=== PATIENT | female | born 1975 | race African-American/Black ===

== ENCOUNTER → 2016-08-31 | Outpatient (CLI) | payer OTHER ==
[~2016-08-31] MED LIST: BENTYL20 M1 PO; CLEOCIN HCL300 M1 PO; DIFLUCAN PO; FLEXERIL10 MG; FLEXERIL10 MG PO; NAPROSYN-EC500 MG PO; NORCO 7.5-3251 EACH PO; NORCO1 TAB 10/3 PO; PHENERGAN25 MG PO; ULTRAM; ULTRAM PO
--- NOTE | ~2016-08-31 | MR165 ---
[facility]. [facility] A Service of [facility] RADIOLOGY TEXT RESULTS PATIENT: APOLINAR HALL LOCATION: [facility] : 75 UNIT #: [id number] AGE: [address]: Jerrell Hou MD SEX: F ORDER DR: [id number] [address] [address] [id number] O MR#: [id number] #: [id number] NAME: APOLINAR HALL : 1975 SEX: F STUDY DATE/TIME: 08/31/2016 11:18 UNIT: [facility] ROOM: STUDY DESCRIPTION: MR Shoulder Wo Contrast Rt Attending Physician: Jerrell Hou M.D. Referring Physician: Jerrell Hou M.D. Ordering Physician: Jerrell Hou M.D. [facility] This report is preliminary unless electronic signature is present. EXAM MRI of the right shoulder HISTORY 40-year-old female complains of shoulder pain bilaterally, right greater than left. Right shoulder pain demonstrates limited range of motion and decreased strength. Clinical concern for AC joint arthritis or tendinitis. COMPARISON Right shoulder films, 06/22/2016 FINDINGS Multiplanar multiecho imaging was performed of the right shoulder utilizing a high field magnet and dedicated protocol. Examination demonstrates marrow edema within the distal third of the clavicle that most likely reflects some marrow edema related to underlying AC joint arthropathy. No findings to suggest underlying infection or neoplasm. Marrow signal within the acromion within normal limits. Marrow signal proximal humerus and glenoid appears normal. Joint fluid within normal limits. Rotator cuff appears intact without tendinopathy or tear. Minimal subacromial-subdeltoid bursal inflammation. No muscle atrophy or edema. Superior labrum, biceps anchor and long tendon of the biceps appears intact. Anterior and posterior labrum unremarkable. Articular cartilage appears normal. The deltoid and extraarticular soft tissues are unremarkable. There is minimal thickening and increased signal of the infraspinatus tendon insertion with a small amount of reactive edema within the greater tuberosity. This most likely reflects very mild tendinopathy. IMPRESSION [facility] A Service of [facility] RADIOLOGY TEXT RESULTS PATIENT: APOLINAR HALL LOCATION: [facility] : 75 UNIT #: [id number] AGE: [address]: Jerrell Hou MD SEX: F ORDER DR: 1. Mild insertional infraspinatus tendinopathy with a trace amount of subacromial-subdeltoid bursal inflammation. 2. Mild AC joint arthropathy with marrow edema in the distal clavicle and a small amount of pericapsular edema. Findings compatible with an active inflammatory component. No osteolysis or AC joint separation. Dictated by... Jayme Thompson M.D. THIS IS AN ELECTRONICALLY VERIFIED REPORT Jayme Thompson M.D. at 09/01/2016 5:03 PM Priti TD: 09/01/2016 14:09 JOB #: [id number] [facility] REPORT Page 1 of 1
== END | disposition home or self-care (01) ==
LOC: SMRI 10:46
DX: M19.011 Primary osteoarthritis, right shoulder (principal); M67.911 Unspecified disorder of synovium and tendon, right shoulder; M75.21 Bicipital tendinitis, right shoulder; M75.81 Other shoulder lesions, right shoulder; M25.461 Effusion, right knee
CPT/HCPCS: 73221

== ENCOUNTER 2016-10-11 23:16 | Emergency (ER) | payer OTHER ==
[~2016-10-11] VITALS: Ht 165.1 cm; Wt 95.2 kg
[~2016-10-11 23:16] MED LIST changes: -FLEXERIL10 MG; -ULTRAM
[2016-10-11] MEDS ORDERED: ULTRAM (23:30)
[2016-10-11] MEDS ORDERED: FLEXERIL10 MG (23:30)
[2016-10-12 00:25] LABS: BASOPHIL# 0.1 X10e3 (0-0.3); BASOPHIL% 0.7 % (0-2.5); EOSINOPHIL# 0.1 X10e3 (0-0.7); EOSINOPHIL% 0.9 % (0.0-7.0); HEMATOCRIT 34.4 % (35.0-45.0); HEMOGLOBIN 11.7 gm/dL (12.0-16.0); LYMPHOCYTE# 1.8 X10e3 (1.0-3.5); LYMPHOCYTE% 19.6 % (17.0-45.0); MEAN CELL VOLUME 96.1 FL (83-96); MEAN CORPUSCULAR HEMOGLOBIN 32.7 PG (28-34); MEAN PLATELET VOLUME 7.5 FL (6.5-11.5); MONOCYTE# 0.8 X10e3 (0-1.0); MONOCYTE% 8.6 % (3.0-12.0); NEUTROPHIL# 6.6 X10e3 (1.5-7.1); NEUTROPHIL% 70.2 % (40-75); PLATELET COUNT 271 X10e3 (140-420); RED BLOOD COUNT 3.58 X10e (3.90-5.30); RED CELL DISTRIBUTION WIDTH 11.8 % (11.0-15.5); WHITE BLOOD COUNT 9.4 X10e3 (4.0-10.5)
[2016-10-12 00:40] LABS: DIFF IND NO
== END 2016-10-12 01:08 | disposition home or self-care (01) ==
LOC: SED 23:16
PROVIDERS: Physician Assistant
DX: N61.0 Mastitis without abscess (principal); K21.9 Gastro-esophageal reflux disease without esophagitis; F17.200 Nicotine dependence, unspecified, uncomplicated; Z90.710 Acquired absence of both cervix and uterus; Z91.040 Latex allergy status; Z88.1 Allergy status to other antibiotic agents
CPT/HCPCS: 36415; 85025; 99284

== ENCOUNTER 2016-10-15 00:31 | Emergency (ER) | payer OTHER ==
[~2016-10-15] VITALS: Ht 165.1 cm; Wt 95.2 kg
[~2016-10-15 00:31] MED LIST changes: +FLEXERIL10 MG; +ULTRAM
== END 2016-10-15 02:14 | disposition home or self-care (01) ==
LOC: SED 00:31
DX: N61.0 Mastitis without abscess (principal); Z79.2 Long term (current) use of antibiotics; Z91.040 Latex allergy status; Z88.1 Allergy status to other antibiotic agents
CPT/HCPCS: 99283